=== PATIENT | male | born 1990 | race American Indian/Alaskan Native ===

== ENCOUNTER 2018-08-05 15:18 | Emergency (ER) | payer OTHER ==
[~2018-08-05] VITALS: Ht 175.3 cm; Wt 93.0 kg
[~2018-08-05 15:18] MED LIST: NORCO 5-325 TA1 EACH PO; ZOFRAN ODT4 MG SL
[2018-08-05] MEDS ORDERED: SERTRALINE HCL50 MG PO ×2 (15:28→19:01)
== END 2018-08-05 19:17 | disposition home or self-care (01) ==
LOC: ED 15:18
DX: F32.9 Major depressive disorder, single episode, unspecified (principal); F17.200 Nicotine dependence, unspecified, uncomplicated; Z79.899 Other long term (current) drug therapy
CPT/HCPCS: 36415; 80053; 80176; 81001; 84443; 85025; 99285; G0480

== ENCOUNTER 2020-06-23 12:16 | Emergency (ER) | payer OTHER ==
[~2020-06-23] VITALS: Ht 175.3 cm; Wt 70.3 kg
[~2020-06-23 12:16] MED LIST changes: +SERTRALINE HCL50 MG PO
== END 2020-06-23 15:33 | disposition home or self-care (01) ==
LOC: ED 12:16
DX: F12.10 Cannabis abuse, uncomplicated (principal); F17.200 Nicotine dependence, unspecified, uncomplicated
CPT/HCPCS: 80053; 80176; 81001; 83735; 84443; 85025; 99283; G0480